=== PATIENT | female | born 1965 | race Caucasian/White ===

== ENCOUNTER 2019-01-17 17:03 | Emergency (ER) | payer MEDICAID ==
[~2019-01-17] VITALS: Ht 160 cm; Wt 69.4 kg
[2019-01-17 17:11] VITALS: BP 180/86
[2019-01-17] MEDS ORDERED: PROZAC (17:22)
--- NOTE | 2019-01-17 19:09 | NUR ---
Patient/Caregiver given discharge instructions and they have confirmed that they understand the instructions. Patient ambulatory with steady gait.
== END 2019-01-17 19:11 | disposition home or self-care (01) ==
LOC: ED 19:05
DX: S63.637A Sprain of interphalangeal joint of left little finger, initial encounter (principal); S09.8XXA Other specified injuries of head, initial encounter; Y04.0XXA Assault by unarmed brawl or fight, initial encounter; Y93.89 Activity, other specified; Y92.410 Unspecified street and highway as the place of occurrence of the external cause; Y99.8 Other external cause status
CPT/HCPCS: 70450; 99284